=== PATIENT | female | born 1955 | race African-American/Black ===

== ENCOUNTER 2016-09-05 13:55 | Emergency (ER) | payer BC ==
[~2016-09-05 13:55] MED LIST: AVAP150 PO; CALTRA600D PO; CELEXA40 MG PO; GLUCXL10 PO; HYDROCHLOROT25 MG PO; JANUMET1 TA1 PO; KLONO1 PO; L40 PO; PRISTIQ100 MG PO
== END 2016-09-05 13:57 | disposition home or self-care (01) ==
LOC: ER 13:55
DX: F41.9 Anxiety disorder, unspecified (principal); F43.10 Post-traumatic stress disorder, unspecified; I10 Essential (primary) hypertension; E11.9 Type 2 diabetes mellitus without complications; Z79.899 Other long term (current) drug therapy
CPT/HCPCS: 93005; 99283